=== PATIENT | male | born 2000 | race Caucasian/White ===

== ENCOUNTER 2023-01-15 01:00 | Emergency (ER) | payer SELFPAY ==
[~2023-01-15] VITALS: Ht 188 cm; Wt 74.0 kg
[2023-01-15 01:10] VITALS: BP 124/60
== END 2023-01-15 02:00 | disposition left against medical advice (07) ==
LOC: ER 01:00
DX: Z53.21 Procedure and treatment not carried out due to patient leaving prior to being seen by health care provider (principal)